=== PATIENT | female | born 1960 | race Two or more races ===

== ENCOUNTER 2016-10-28 13:06 | Emergency (ER) | payer OTHER ==
[~2016-10-28] VITALS: Ht 170.2 cm; Wt 65.0 kg
[2016-10-28] MEDS ORDERED: IBUPROFEN 600MG TABLET PO ONE (16:00)
[2016-10-28 16:39] VITALS: BP 132/82
== END 2016-10-28 16:41 | disposition home or self-care (01) ==
LOC: ER 13:27
DX: R51 Headache (principal); V89.2XXA Person injured in unspecified motor-vehicle accident, traffic, initial encounter; Y93.89 Activity, other specified; Y92.89 Other specified places as the place of occurrence of the external cause; Y99.8 Other external cause status
CPT/HCPCS: 99283